=== PATIENT | male | born 1970 | race African-American/Black ===

== ENCOUNTER 2023-04-25 22:52 | Observation (INO) | payer OTHER ==
[2023-04-25] MEDS ORDERED: ALBUTEROL 2.5 MG/3 ML NEB SOL NEB PRN (23:20)
[2023-04-25] MEDS ORDERED: ONDANSETRON 4 MG/2 ML VIAL IV PRN (23:20)
--- NOTE | 2023-04-25 23:32 | P.HP ---
Certification for Inpatient Patient admitted to: Observation With expected LOS: <2 Midnights Patient will require the following post-hospital care: None Practitioner: I am a practitioner with admitting privileges, knowledge of patient current condition, hospital course, and medical plan of care. Services: Services provided to patient in accordance with Admission requirements found in Title 42 Section 412.3 of the Code of Federal Regulations Patient History Date of Service: 04/25/23 Reason for admission: Dyspnea, fever History of Present Illness: 52-year-old male with history of CHF, hypertension, lymphedema presented to [place] emergency department with chief complaint of shortness of breath, fever. He reports that he went fishing yesterday and felt as if he got overheated at that time, has been feeling unwell since then. He does endorse some fevers, shortness of breath he denies any abdominal pain, nausea, vomiting, diarrhea, ill contacts, cough is ROS is otherwise completely negative. He was evaluated at outside stand-alone emergency department found to be satting around 90% on room air his labs were significant for sodium 132 potassium 3.2 bicarb 33 chloride 92 glucose 115 calcium 9.1 creatinine 1.4 BUN 15 AST 34 ALT 26 T. bili 1.1 troponin 0.11 BNP 15.1 white blood cell count 23.1 hemoglobin 12.8 hematocrit 39.6 platelets 79 negative for flu/COVID 2 view chest x-ray negative for acute findings. Given his dyspnea, fever and marked leukocytosis ED physician will reach out to our facility to transfer for further evaluation and management. 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 moist/pink, EOMI, Sclerae nonicteric Neck: Supple, 2+ carotid pulse no bruit, No LAD, Without JVD or thyroid abnormality Respiratory: Diminished Cardiovascular: Regular rate/rhythm, Normal S1 S2 Capillary refill: <2 Seconds Gastrointestinal: Normal bowel sounds, No tenderness Musculoskeletal: No tenderness Integumentary: No rashes Neurological: Normal speech, Normal strength at 5/5 x4 extr, Normal tone, Normal affect Assessment and Plan - Plan Assessment: Dyspnea, fever, leukocytosis Thrombocytopenia Chronic CHFunknown EF Hypertension Lymphedema Plan: Dyspnea, fever, leukocytosis 2 view chest x-ray negative for acute findings, does endorse some increasing shortness of breath. Will obtain CT chest to evaluate for pneumonia, continue antibiotics Rocephin/Zithromax for now. He denies any abdominal complaints, no abdominal tenderness or pain, no nausea/vomiting/diarrhea, no new rashes. He d oes report getting overheated we will obtain CPK to evaluate for rhabdomyolysis. Continue antibiotics, Pro-Ted/CRP ordered for the morning. Thrombocytopenia Unclear etiology, has had thrombocytopenia in the past many years ago, will avoid Lovenox/heparin for now. Trend daily. Chronic CHFunknown EF Prior to assess volume status given body habitus, will monitor labs daily, he does not appear grossly overloaded at this time. We will obtain echocardiogram. He follows Dr. Perales at [facility]. Hypertension Obtain and continue on medications Lymphedema Chronic, at baseline. DVT PPX: SCDs Code status: Full Discharge Plan: Home Plan to discharge in: 24 Hours - Advance Directives Does patient have a Living Will: No Does patient have a Durable POA for Healthcare: No - Code Status/Comfort Care Code Status Assessed: Yes (Full code) Critical Care: No Time Spent Managing Pts Care (In Minutes): 55
[2023-04-26 01:41] LABS: Specific Gravity 1.018 (1.005-1.030); Urine Bacteria None Seen /HPF (<20); Urine Bilirubin NEGATIVE (Negative); Urine Blood Trace (Negative); Urine Clarity Clear (Clear); Urine Color Light-Yellow (Yellow); Urine Glucose NEGATIVE (Negative); Urine Protein TRACE (Negative); Urine RBC None Seen /HPF (None Seen); Urine Urobilinogen Normal (Normal)
[2023-04-26] MEDS: ACETAMINOPHEN 325 MG TABLET PO PRN ×2 (04:24→15:58)
[2023-04-26 06:28] LABS: Absolute Lymphocytes (CBC) 0.7 K/uL (0.7-4.9); Hematocrit 35.4 % (39.6-49.0); Lymphocytes % 3.2 % (15.3-44.8); MCV 80.4 fL (80-100); MPV 10.8 fL (7.6-11.3); RBC Red Blood Cell Count 4.41 M/uL (4.33-5.43)
[2023-04-26 06:55] LABS: Potassium 2.8 mEq/L (3.5-5.1); Thyroid Stimulating Hormone 2.14 uIU/mL (0.358-3.740)
[2023-04-26] MEDS: CEFTRIAXONE 1,000 MG in NA CHLORIDE 0.9% 50 ML IVPB SCH (08:18)
[2023-04-26] MEDS ORDERED: ENOXAPARIN 40 MG/0.4 ML SQ SCH (09:00)
[2023-04-26] MEDS: AZITHROMYCIN IV 500 MG in NA CHLORIDE 0.9% 250 ML IVPB SCH (09:01)
[2023-04-26] MEDS ORDERED: NA CHLORIDE 0.9% 500 ML ONE (10:58)
[2023-04-26] MEDS: KCL 20 MEQ/100 mL IVPB 20 MEQ/100 ML BAG IV SCH ×3 (11:12→15:51)
[2023-04-26 11:54] LABS: Blood Morphology Comment NOT SEEN (NOT SEEN); Platelet Estimate DECR
[2023-04-26] MEDS ORDERED: ALBUTEROL 2.5 MG/3 ML NEB SOL NEB PRN (12:00)
--- NOTE | 2023-04-26 13:57 | RAD REPORT ---
EXAM DESCRIPTION: CT - Thorax Wo Con - 04/26/2023 9:59 am CLINICAL HISTORY: Dyspnea, fever, leukocytosis COMPARISON: THORAX WO CONTRAST dated 09/13/2015 TECHNIQUE: Axial thin cut images of the chest were obtained without IV contrast. Multiplanar reforma ts were generated and reviewed. All CT scans are performed using dose optimization technique as appropriate and may include automated exposure control or mA/KV adjustment according to patient size. FINDINGS: No mass or infiltrate in the lung parenchyma. No pleural thickening or pleural effusion. N o pneumothorax. Incidentally noted peripheral left upper lobe 4 millimeter peribronchovascular nodule , axial image 30/58, likely benign. No abnormal mediastinal or hilar masses or lymphadenopathy seen. No significant aortic or pulmonary a rtery findings. Suspected crowding of the central vascular markings. Assessment is limited in the abs ence of IV contrast. No chest wall mass or abnormal axillary lymphadenopathy. Evaluation of the solid abdominal structures reveals no suspicious findings. Diffuse hepatic parenchy mal hypoattenuation suggesting steatosis. IMPRESSION: No acute process within the chest. Incidental findings as above.
--- NOTE | 2023-04-26 15:26 | P.PN ---
Subjective Date of Service: 04/26/23 Chief Complaint: Dyspnea, fever Patient states his numbness of breath is better compared to yesterday. He has been ambulating to and from bathroom. He stated his oxygen machine broke and has not been able to use oxygen with his CPAP over the last couple of weeks. Physical Examination - Vital Signs Temperature: 97.9 F Blood Pressure: 119/54 Pulse: 78 Respirations: 20 Pulse Ox (%): 96 - Studies Laboratory Data (last 24 hrs) 04/26/23 05:50: Sodium 131 L, Potassium 2.8 L, BUN 17, Creatinine 1.16, Glucose 139 H 04/26/23 05:50: WBC 22.20 H, Hgb 11.4 L, Hct 35.4 L, Plt Count 90 L Assessment And Plan - Plan Physical Exam General: Alert, In no apparent distress, Oriented x3, morbidly obese. HEENT: Atraumatic, PERRLA, Mucous membr. moist/pink, EOMI, Sclerae nonicteric Neck: Supple, 2+ carotid pulse no bruit, No LAD, Without JVD or thyroid abnormality Respiratory: Diminished, no crackles. Cardiovascular: Regular rate/rhythm, Normal S1 S2 Gastrointestinal: Normal bowel sounds, No tenderness Musculoskeletal: No tenderness, bilateral lower extremity lymphedema. Integumentary: No rashes Neurological: Normal speech, Normal strength at 5/5 x4 extr, Normal tone, Normal affect Assessment and Plan Assessment: Dyspnea, fever, leukocytosis Thrombocytopenia Chronic CHFunknown EF Hypertension Lymphedema Plan: Dyspnea, fever, leukocytosis 2 view chest x-ray negative for acute findings, does endorse some increasing shortness of breath. CT chest: No acute findings. Elevated procalcitonin Suspect acute viral infection versus infective bronchitis continue Rocephin/Zithromax for now. Follow cultures. Thrombocytopenia Chronic. Monitor CBC. Chronic CHFunknown EF He appears compensated for CHF. He follows Dr. Perales at [facility]. Echocardiogram ordered. Hypertension Continue home medications. Lymphedema Chronic, at baseline. Obstructive sleep apnea CPAP during sleep. She was a service assisting with arrangements for his home oxygen to be fixed. DVT PPX: SCDs Code status: Full
[2023-04-26 22:02] LABS: Potassium 3.2 mEq/L (3.5-5.1)
[2023-04-26] MEDS ORDERED: POTASSIUM CL SA 10 MEQ TAB PO ONE (22:15)
[2023-04-26 23:28] VITALS: BMI 58.7
[2023-04-27 04:32] VITALS: O2SAT 97
--- NOTE | 2023-04-27 06:53 | ECHO ---
HEIGHT: 5 ft 6 in WEIGHT: 364 lb 0 oz DATE OF STUDY: 04/26/[address]: William Santizo NP 2-DIMENSIONAL: YES M.MODE: YES DOPPLER: YES COLOR FLOW: YES TDS: YES PORTABLE: YES DEFINITY: BUBBLE STUDY: DIAGNOSIS: CONGESTIVE HEART FAILURE, DYSPNEA CARDIAC HISTORY: CATHERIZATION: NO SURGERY: NO PROSTHETIC VALVE: NO PACEMAKER: NO MEASUREMENTS (cm) DIASTOLIC (NORMALS) SYSTOLIC (NORMALS) IVSd 1.2 (0.6-1.2) LA Diam 2.5 (1.9-4.0) LVEF 67% LVIDd 5.1 (3.5-5.7) LVIDs 3.2 (2.0-3.5) %FS 37% LVPWd 1.3 (0.6-1.2) Ao Diam 2.2 (2.0-3.7) 2 DIMENSIONAL ASSESSMENT: RIGHT ATRIUM: NORMAL LEFT ATRIUM: NORMAL RIGHT VENTRICLE: NORMAL LEFT VENTRICLE: LEFT VENTRICULAR HYPERTROPHY TRICUSPID VALVE: MILD TRICUSPID REGURGITATION MITRAL VALVE: NORMAL PULMONIC VALVE: NORMAL AORTIC VALVE: NORMAL PERICARDIAL EFFUSION: NONE AORTIC ROOT: NORMAL LEFT VENTRICULAR WALL MOTION: UNABLE TO EVALUATE DOPPLER/COLOR FLOW: SEE BELOW COMMENTS: 1. POOR WINDOWS 2. LEFT VENTRICULAR EJECTION FRACTION OVERALL APPEARS NORMAL 3. DIASTOLIC DYSFUNCTION 4. MILD CONCENTRIC LEFT VENTRICULAR HYPERTROPHY TECHNOLOGIST: THOMAS PATEL
[2023-04-27 07:00] LABS: Absolute Lymphocytes (CBC) 1.1 K/uL (0.7-4.9); Hematocrit 34.2 % (39.6-49.0); Lymphocytes % 7.3 % (15.3-44.8); MCV 81.2 fL (80-100); RBC Red Blood Cell Count 4.21 M/uL (4.33-5.43)
[2023-04-27 07:26] LABS: Potassium 3.5 mEq/L (3.5-5.1)
[2023-04-27] MEDS ORDERED: POTASSIUM CL SA 10 MEQ TAB PO ONE (07:30)
[2023-04-27] MEDS: CEFTRIAXONE 1,000 MG in NA CHLORIDE 0.9% 50 ML IVPB SCH (07:42)
[2023-04-27] MEDS: AZITHROMYCIN IV 500 MG in NA CHLORIDE 0.9% 250 ML IVPB SCH (08:30)
[2023-04-27 08:40] VITALS: BP 109/55; TEMP 98.5
--- NOTE | 2023-04-27 08:53 | P.DS ---
Admission Date: 04/25/23 Discharge Date: 04/27/23 Disposition: ROUTINE DISCHARGE Discharge Condition: FAIR Reason for Admission: Dyspnea, fever Brief History of Present Illness: 52-year-old male with history of CHF, hypertension, lymphedema presented to [place] emergency department with chief complaint of shortness of breath, fever. He reports that he went fishing yesterday and felt as if he got overheated at that time, has been feeling unwell since then. He does endorse some fevers, shortness of breath he denies any abdominal pain, nausea, vomiting, diarrhea, ill contacts, cough is ROS is otherwise completely negative. He was evaluated at outside stand-alone emergency department found to be satting around 90% on room air his labs were significant for sodium 132 potassium 3.2 bicarb 33 chloride 92 glucose 115 calcium 9.1 creatinine 1.4 BUN 15 AST 34 ALT 26 T. bili 1.1 troponin 0.11 BNP 15.1 white blood cell count 23.1 hemoglobin 12.8 hematocrit 39.6 platelets 79 negative for flu/COVID 2 view chest x-ray negative for acute findings. Given his dyspnea, fever and marked leukocytosis ED physician will reach out to our facility to transfer for further evaluation and management. Hospital Course: Assessment: Dyspnea, fever, leukocytosis Thrombocytopenia Chronic diastolic heart failure Hypertension Lymphedema Patient was admitted to the medical floor and the following medical problems addressed: Dyspnea/Spepsis/acute infective bronchitis 2 view chest x-ray negative for acute findings, patient endorsed shortness of breath CT chest: No acute findings. Elevated procalcitonin Suspect acute viral infection versus infective bronchitis. History of lymphedema but no cellulitis Patient treated with IV Rocephin and Zithromax. Leukocytosis improved. Patient's symptoms resolved. Thrombocytopenia Chronic and stable Chronic diastolic heart failure He appears compensated for CHF. He follows Dr. Perales at [facility]. Echocardiogram was suboptimal due to poor windows but overall unremarkable Hypertension Held home antihypertensives due to soft blood pressure. Antihypertensives held on discharge and patient advised to monitor his blood pressure and resume his antihypertensives should his systolic blood pressure stays consistently above 140. Lymphedema Chronic, at baseline. Obstructive sleep apnea CPAP during sleep. Patient stated he uses oxygen with his CPAP and his oxygenation is broken. Social service consulted to assist with arrangement for his home oxygen. Patient oxygen saturation was 97% on room air during the hospital stay. Vital Signs/Physical Exam: Temp Pulse Resp BP Pulse Ox 98.5 F 60 14 109/55 L 92 04/27/23 08:00 04/27/23 08:00 04/27/23 08:00 04/27/23 08:00 04/27/23 08:00 General: Alert, In no apparent distress, Oriented x3 HEENT: Mucous membr. moist/pink Neck: JVD not distended Respiratory: Clear to auscultation bilaterally, Normal air movement Cardiovascular: Regular rate/rhythm, Normal S1 S2, Other (Trace bilateral lower extremity edema) Gastrointestinal: Soft and benign, Non-distended, No tenderness Musculoskeletal: No swelling, No tenderness Integumentary: No rashes, No cyanosis Neurological: Normal strength at 5/5 x4 extr Laboratory Data at Discharge: WBC 15.40 thou/uL (4.3-10.9) H 04/27/23 06:46 Hgb 10.8 g/dL (13.6-17.9) L 04/27/23 06:46 Hct 34.2 % (39.6-49.0) L 04/27/23 06:46 Plt Count 79 thou/uL (152-406) L 04/27/23 06:46 Sodium 133 mEq/L (136-145) L 04/27/23 06:46 Potassium 3.5 mEq/L (3.5-5.1) 04/27/23 06:46 BUN 14 mg/dL (7-18) 04/27/23 06:46 Creatinine 0.95 mg/dL (0.70-1.30) 04/27/23 06:46 Glucose 114 mg/dL (74-106) H 04/27/23 06:46 Home Medications: Furosemide [Lasix*] 40 mg PO DAILY 04/25/23 Potassium Chloride 10 meq PO DAILY 04/25/23 levoFLOXacin [Levaquin] 750 mg PO DAILY #5 tab 04/27/23 New Medications: levoFLOXacin [Levaquin] 750 mg PO DAILY #5 tab Diet: AHA Activity: Ad jessie Followup: GEORGES FRY [OUTSIDE PHYSICIAN] - 1-2 Weeks Time spent managing pt's care (in minutes): 33
[2023-04-27] MEDS ORDERED: POTASSIUM CL SA 10 MEQ TAB PO SCH (09:00)
== END 2023-04-27 09:51 | disposition home or self-care (01) ==
LOC: 4TH 22:56
PROVIDERS: ADMIT Internal Medicine; ATTEND Internal Medicine
DX: R06.00 Dyspnea, unspecified (principal); R50.9 Fever, unspecified; D72.829 Elevated white blood cell count, unspecified; I10 Essential (primary) hypertension; I89.0 Lymphedema, not elsewhere classified; I50.9 Heart failure, unspecified; D69.6 Thrombocytopenia, unspecified; G47.33 Obstructive sleep apnea (adult) (pediatric)
CPT/HCPCS: 93306; 87040; 85025 ×2; 81001; 80048 ×3; 36415 ×2; 82550 ×2; 84443; 84439; 84145; 83880; 86140; 71250; 94660; J3480 ×3; J7050 ×2; J7040; J0696 ×2; G0378; G0379